=== PATIENT | male | born 1950 | race Caucasian/White ===

== ENCOUNTER 2018-01-03 14:14 | Inpatient (IN) ==
[2018-01-03] MEDS ORDERED: ACETAMINOPHEN 325 MG TABLET PO PRN (16:23)
[2018-01-03] MEDS ORDERED: ONDANSETRON 4 MG/2 ML VIAL IV PRN (16:23)
[2018-01-03] MEDS ORDERED: MORPHINE 4 MG/1 ML VIAL IV PRN (16:23)
[2018-01-03 17:10] LABS: Basophils % 0.3 % (0.0-0.8); Eosinophils # 0.2 10*3/uL (0.0-0.87); Eosinophils % 1.5 % (0.00-10.9); Hemoglobin 15.4 GM/DL (14.0-18.0); Immature Granulocytes % 0.4 %; Immature Granulocytes Absolute 0.04 #; Lymphocytes % 18.8 % (21.2-54.2); Mean Corpuscular HGB Conc 33.5 GM/DL (32-36); Mean Corpuscular Hemoglobin 32 PG (27-34); Mean Corpuscular Volume 94.8 FL (87-102); Mean Platelet Volume 9.8 FL (9.6-12.0); Monocytes % 9.7 % (1.7-12.7); Neutrophils # 7.5 10*3/uL (1.4-7.4); Neutrophils % 69.3 % (38.7-73.9); Platelet Count 325 T/CUMM (130-400); Red Blood Count 4.85 MC/CUMM (3.8-5.5); Red Cell Distribution Width 13.3 % (9.3-17.3); White Blood Count 10.8 T/CUMM (4-12)
[2018-01-03] MEDS ORDERED: PNEUMOCOCCAL VACCINE (13 VALENT) 0.5 ML SYRINGE IM ONE (17:29)
[2018-01-03 17:38] LABS: Bilirubin,Total 1.2 MG/DL (0.2-1.0); Calcium 9.3 MG/DL (8.5-10.1); Osmolality,Calculated 276.5 MOS/KG (273-304); Potassium 4.1 MMOL/L (3.5-5.1); Total Protein 7.6 G/DL (6.4-8.3)
[2018-01-03 18:25] LABS: Sedimentation Rate-Westergren 24 MM/HR (0-20)
[2018-01-03] MEDS: PIPERACILLIN/TAZOBACTAM 3,375 MG in SODIUM CHLORIDE 0.9% 100 ML IV SCH (18:36)
[2018-01-03] MEDS: DEXTROSE 5% NACL 0.45% 1,000 ML IV SCH (18:36)
[2018-01-03] MEDS: VANCOMYCIN INJ 1,750 MG in SODIUM CHLORIDE 0.9% 500 ML IV SCH (22:49)
[2018-01-04] MEDS: PIPERACILLIN/TAZOBACTAM 3,375 MG in SODIUM CHLORIDE 0.9% 100 ML IV SCH ×2 (02:00→10:03)
[2018-01-04] MEDS: DEXTROSE 5% NACL 0.45% 1,000 ML IV SCH ×2 (04:24→15:36)
[2018-01-04 06:32] LABS: Basophils % 0.4 % (0.0-0.8); Eosinophils # 0.3 10*3/uL (0.0-0.87); Eosinophils % 3.4 % (0.00-10.9); Hematocrit 40.5 VOL% (42.0-52.0); Hemoglobin 13.8 GM/DL (14.0-18.0); Immature Granulocytes % 0.5 %; Immature Granulocytes Absolute 0.04 #; Lymphocytes # 2.1 10*3/uL (1.4-4.0); Lymphocytes % 27.3 % (21.2-54.2); Mean Corpuscular HGB Conc 34.1 GM/DL (32-36); Mean Corpuscular Hemoglobin 32 PG (27-34); Mean Corpuscular Volume 94.2 FL (87-102); Mean Platelet Volume 9.7 FL (9.6-12.0); Monocytes # 0.8 10*3/uL (0.11-0.8); Monocytes % 10.6 % (1.7-12.7); Neutrophils # 4.4 10*3/uL (1.4-7.4); Neutrophils % 57.8 % (38.7-73.9); Platelet Count 289 T/CUMM (130-400); Red Cell Distribution Width 13.5 % (9.3-17.3); White Blood Count 7.6 T/CUMM (4-12)
[2018-01-04 07:07] LABS: Calcium 8.7 MG/DL (8.5-10.1); Osmolality,Calculated 282.1 MOS/KG (273-304); Potassium 4.3 MMOL/L (3.5-5.1)
[2018-01-04] MEDS: VANCOMYCIN INJ 1,750 MG in SODIUM CHLORIDE 0.9% 500 ML IV SCH ×3 (07:14→21:13)
[2018-01-04] MEDS: PANTOPRAZOLE 40 MG TABLET PO SCH (09:56)
[2018-01-04] MEDS: ASPIRIN EC 81 MG TABLET PO SCH (12:36)
[2018-01-04] MEDS: FENOFIBRATE 160 MG TABLET PO SCH (12:36)
[2018-01-04] MEDS: MULTIVITAMIN (CENTRUM) TABLET PO SCH (21:13)
[2018-01-05] MEDS: MULTIVITAMIN (CENTRUM) TABLET PO SCH (09:47)
[2018-01-05] MEDS: PANTOPRAZOLE 40 MG TABLET PO SCH (09:47)
[2018-01-05] MEDS: ASPIRIN EC 81 MG TABLET PO SCH (09:47)
[2018-01-05] MEDS: FENOFIBRATE 160 MG TABLET PO SCH (09:47)
[2018-01-05] MEDS ORDERED: VANCOMYCIN INJ 1,750 MG in SODIUM CHLORIDE 0.9% 500 ML IV SCH (10:00)
[2018-01-05 12:02] VITALS: BP 105/59
== END 2018-01-05 15:15 | disposition home or self-care (01) | DRG 603 ==
LOC: N.EDINP
PROVIDERS: ADMIT Surgery; ATTEND Surgery